=== PATIENT | female | born 1945 | race Caucasian/White ===

== ENCOUNTER → 2018-06-28 | Outpatient (CLI) | payer MEDICARE, BC | LOC: M.RAD 12:49 | DX: M81.0 Age-related osteoporosis without current pathological fracture (principal); Z78.0 Asymptomatic menopausal state ==

== ENCOUNTER → 2018-10-08 | Outpatient (CLI) | payer MEDICARE, BC | LOC: M.RAD 10:15 | DX: Z12.31 Encounter for screening mammogram for malignant neoplasm of breast (principal) ==

== ENCOUNTER → 2018-12-02 | Outpatient (CLI) | payer MEDICARE, BC | LOC: M.MRI 07:50 | DX: S32.010A Wedge compression fracture of first lumbar vertebra, initial encounter for closed fracture (principal); M25.78 Osteophyte, vertebrae; M51.27 Other intervertebral disc displacement, lumbosacral region; M48.07 Spinal stenosis, lumbosacral region; M43.16 Spondylolisthesis, lumbar region; M96.1 Postlaminectomy syndrome, not elsewhere classified; W19.XXXA Unspecified fall, initial encounter; Y93.89 Activity, other specified; Y92.89 Other specified places as the place of occurrence of the external cause; Y99.8 Other external cause status ==

== ENCOUNTER → 2018-12-14 | Outpatient (CLI) | payer MEDICARE, BC ==
[~2018-12-14] VITALS: Ht 162.6 cm; Wt 77.1 kg
[~2018-12-14] MED LIST: FISH OIL 1,001000 M2 PO; LATANOPROST 0.2.5 ML OPHTHALMIC
[2018-12-14 14:07] VITALS: BP 124/73
== END ==
LOC: M.INT 13:41
DX: S32.019A Unspecified fracture of first lumbar vertebra, initial encounter for closed fracture (principal); X58.XXXA Exposure to other specified factors, initial encounter; Y93.89 Activity, other specified; Y92.89 Other specified places as the place of occurrence of the external cause; Y99.8 Other external cause status; Z88.0 Allergy status to penicillin; Z88.5 Allergy status to narcotic agent; Z79.899 Other long term (current) drug therapy

== ENCOUNTER → 2018-12-22 | Outpatient (CLI) | payer MEDICARE, BC ==
[~2018-12-22] VITALS: Ht 162.6 cm; Wt 77.1 kg
[2018-12-22 09:12] LABS: POTASSIUM 3.7 mmol/L (3.5-5.1)
[2018-12-22 09:14] LABS: ABSOLUTE BASOPHILS 0.1 thou/uL (0.0-0.2); ABSOLUTE EOSINOPHILS 0.1 thou/uL (0.0-0.7); ABSOLUTE LYMPHOCYTES 1.3 thou/uL (0.8-5.3); ABSOLUTE MONOCYTES 0.4 thou/uL (0.0-1.2); ABSOLUTE NEUTROPHILS 2.8 thou/uL (1.6-8.1); BASOPHILS 1.1 %; EOSINOPHILS 1.3 %; LYMPHOCYTES 29.1 %; MCH 32.3 pg (26.0-34.0); MCHC 34.9 g/dL (28.0-37.0); MCV 92.7 fL (80.0-100.0); MONOCYTES 7.9 %; MPV 7.8 fl. (7.2-11.1); NUCLEATED RBCS 0 /100WBC; PLATELET COUNT* 374 thou/uL (150-400); POLYS 60.6 %; PROTIME 10.1 Seconds (9.20-11.50); RBC 4.63 mil/uL (4.20-5.00); WBC 4.6 thou/uL (4.0-11.0)
[2018-12-22 09:17] LABS: ALBUMIN 3.1 g/dL (3.4-5.0); TOTAL BILIRUBIN 0.6 mg/dL (<0.1-1.0); TOTAL PROTEIN 7.4 g/dL (6.4-8.2)
[2018-12-22 09:21] VITALS: BP 125/85
[2018-12-22 11:26] VITALS: BP 118/59
[2018-12-22 11:48] VITALS: BP 118/54
[2018-12-22 12:24] VITALS: BP 111/54
[2018-12-22 13:33] VITALS: BP 123/71
== END | disposition home or self-care (01) ==
LOC: M.INT 12-14 16:02 → M.LAB 09:00 → M.INT 10:00
PROVIDERS: Radiology Diagnostic Radiology
DX: M80.08XA Age-related osteoporosis with current pathological fracture, vertebra(e), initial encounter for fracture (principal); M54.9 Dorsalgia, unspecified; Z98.890 Other specified postprocedural states; Z90.49 Acquired absence of other specified parts of digestive tract; Z86.718 Personal history of other venous thrombosis and embolism; Z79.01 Long term (current) use of anticoagulants; Z79.899 Other long term (current) drug therapy; Z88.0 Allergy status to penicillin

== ENCOUNTER → 2019-02-15 | Outpatient (CLI) | payer MEDICARE, BC | LOC: M.RAD 08:04 | DX: N64.4 Mastodynia (principal); Z88.0 Allergy status to penicillin; Z91.041 Radiographic dye allergy status ==

== ENCOUNTER → 2019-11-28 | Outpatient (CLI) | payer MEDICARE, BC | LOC: M.RAD 13:47 | DX: Z12.31 Encounter for screening mammogram for malignant neoplasm of breast (principal) ==